=== PATIENT | female | born 1975 | race Hispanic/Latino ===

== ENCOUNTER 2018-07-27 17:45 | Emergency (ER) | payer OTHER ==
[2018-07-27 17:52] VITALS: O2SAT 100
[2018-07-27 18:29] LABS: BASO % 0.7 % (0.0-2.0); EOS # 0.1 K/uL (0.0-0.7); EOS % 1.2 % (0.0-4.0); HEMOGLOBIN 13.7 g/dL (12.0-16.0); LYMPH # 1.9 K/uL (1.0-4.3); LYMPH % 37.8 % (20.0-40.0); MEAN CELL VOLUME 92.9 fl (81.0-99.0); MEAN CORPUSCULAR HGB CONC 34.4 g/dL (33.0-37.0); MEAN PLATELET VOLUME 7.8 fl (7.2-11.7); MONO # 0.3 K/uL (0.0-0.8); MONO % 5.8 % (0.0-10.0); NEUT # 2.8 K/uL (1.8-7.0); NEUT % 54.5 % (50.0-75.0); NRBC % 0.3 % (0.0-0.0); RBC 4.28 Mil/uL (3.80-5.20); RED CELL DISTRIBUTION WIDTH 13.2 % (11.5-14.5); WHITE BLOOD COUNT 5.1 K/uL (4.8-10.8)
[2018-07-27 18:32] LABS: ALB/GLOB RATIO 1.4 (1.0-2.1); ALBUMIN 4.9 g/dL (3.5-5.0); ALT/SGPT 15 U/L (9-52); AST/SGOT 23 U/L (14-36); BLOOD UREA NITROGEN 11 mg/dl (7-17); CALCIUM 9.9 mg/dL (8.4-10.2); GFR NON-AFRICAN AMERICAN > 60
[2018-07-27 18:37] LABS: ACETAMINOPHEN < 10.0 ug/ml (10.0-30.0); SALICYLATE < 1.0 mg/dl
--- NOTE | 2018-07-27 18:57 | ED PDOC ---
HPI: Psych/Substance Abuse Time Seen by Provider: 07/27/18 17:51 Chief Complaint (Nursing): Alcohol Ingestion Chief Complaint (Provider): alcohol ingestion History/Exam Limitations: intoxication Additional Complaint(s): 42 y/o F with no significant PMH who was brought in by [place] [employer] and EMS for evaluation of alcohol intoxication. [place] police were stopped by bystanders reporting that patient was noted to be stumbling and falling against parked cars while pushing a stroller. As per [place] police officers who responded to call, pt was seen to have an unsteady gait and appeared visibly intoxicated with the smell of alcohol on her breath. EMS was called to evaluate patient and baby. Patient admits to having 2 drinks earlier today. Denies falling or any physical complaints. Denies drug use or chronic alcohol use. Of note: Child is being evaluated in ER currently with her mixing machine tender and [place] police lieutenant as guardian as per patient, there are no other family members to stay with child. Past Medical History Reviewed: Historical Data, Nursing Documentation, Vital Signs Vital Signs: Last Vital Signs Temp 98 F 07/27/18 17:48 Pulse 115 H 07/27/18 17:48 Resp 16 07/27/18 17:48 BP 134/67 07/27/18 17:48 Pulse Ox 100 07/27/18 17:48 - Medical History PMH: Asthma Denies: Chronic Kidney Disease - Family History Family History: States: Unknown Family Hx - Immunization History Hx Tetanus Toxoid Vaccination: No Hx Influenza Vaccination: No - Home Medications Home Medications: Ambulatory Orders Medication Instructions Recorded Albuterol 2 inh PO Q6 PRN 11/12/14 Prilosec 11/18/14 - Allergies Allergies/Adverse Reactions: Allergies Allergy/AdvReac Type Severity Reaction Status Date / Time No Known Allergies Allergy Verified 11/12/14 13:29 Review of Systems Neurological: Negative for: Weakness, Incoordination, Confusion, Headache Physical Exam - Reviewed Nursing Documentation Reviewed: Yes Vital Signs Reviewed: Yes - Physical Exam Appears: Positive for: No Acute Distress Head Exam: Positive for: ATRAUMATIC, NORMAL INSPECTION Skin: Positive for: Normal Color Eye Exam: Positive for: EOMI, PERRL, Conjunctival injection (mild B/L) ENT: Negative for: Pharyngeal Erythema Neck: Positive for: Supple Cardiovascular/Chest: Positive for: Regular Rate, Rhythm Respiratory: Positive for: Normal Breath Sounds Extremity: Positive for: Normal ROM (with flexion and extension of B/L shoulders, elbows, knees. No excoriations or ecchymosis. ) Neurological/Psych: Positive for: Awake, Alert, Symmetric/Intact Strength, Oriented, Gait (steady, able to walk heel to toe.), Cerebellar Tests (able to perform alternating finger to nose to finger test), livestock breeder II-XII (puff cheeks and smiles symmetrically, no tongue deviation. ). Negative for: Lethargic, Motor/Sensory Deficits, Facial Droop - Laboratory Results Result Diagrams: 07/27/18 18:17 07/27/18 18:17 Lab Results: Total Bilirubin 1.0 mg/dl (0.2-1.3) 07/27/18 18:17 AST 23 U/L (14-36) 07/27/18 18:17 ALT 15 U/L (9-52) 07/27/18 18:17 Alkaline Phosphatase 49 U/L (38-126) 07/27/18 18:17 Total Protein 8.2 G/DL (6.3-8.2) 07/27/18 18:17 Albumin 4.9 g/dL (3.5-5.0) 07/27/18 18:17 Globulin 3.4 gm/dL (2.2-3.9) 07/27/18 18:17 Albumin/Globulin Ratio 1.4 (1.0-2.1) 07/27/18 18:17 - ECG O2 Sat by Pulse Oximetry: 100 Medical Decision Making Medical Decision Making: CBC, CMP, serum ETOH Urine drug screen salicylate Acetaminophen level Serum ETOH 244 @ 18:17 Labs otherwise unremarkable 20:00: patient endorsed to SAAD Pleitez pending sobriety Disposition - Clinical Impression Clinical Impression: Alcohol intoxication - Patient ED Disposition Is Patient to be Admitted: Transfer of Care (SAAD Pleitez) - Disposition Disposition: Routine/Home Disposition Time: 20:00 Condition: FAIR Forms: [employer] (Cuban)
[2018-07-27 19:00] LABS: BARBITURATES, UR NEGATIVE (NEGATIVE); BENZODIAZEPINES, UR NEGATIVE (NEGATIVE); OPIATES, UR NEGATIVE (NEGATIVE)
[2018-07-27 19:09] LABS: PHENCYCLIDINE, UR NEGATIVE (NEGATIVE)
[2018-07-27 20:50] VITALS: BP 128/83; PULSE 92; RESP 18; TEMP 98.8
--- NOTE | 2018-07-27 22:01 | ED PDOC ---
- Laboratory Results Result Diagrams: 07/27/18 18:17 07/27/18 18:17 Lab Results: Total Bilirubin 1.0 mg/dl (0.2-1.3) 07/27/18 18:17 AST 23 U/L (14-36) 07/27/18 18:17 ALT 15 U/L (9-52) 07/27/18 18:17 Alkaline Phosphatase 49 U/L (38-126) 07/27/18 18:17 Total Protein 8.2 G/DL (6.3-8.2) 07/27/18 18:17 Albumin 4.9 g/dL (3.5-5.0) 07/27/18 18:17 Globulin 3.4 gm/dL (2.2-3.9) 07/27/18 18:17 Albumin/Globulin Ratio 1.4 (1.0-2.1) 07/27/18 18:17 - ECG O2 Sat by Pulse Oximetry: 100 - Progress ED Course And Treament: 1999 Signed out to me pending sobriety 2029 On my initial evaluation, pt. in no distress. Offers no complaints. Gait steady, unassisted. 2100 DYFS in pt's room. 2245 As per DYFS pt. will be going home with her child's product assembler (Samantha Callahan) who will serve as an observer and contact DYFS for any concerns regarding baby's safety. Pt. informed of all results and dangers of drinking alcohol. Pt. offers no complaints. Gait steady, unassisted. Disposition - Clinical Impression Clinical Impression: Alcohol intoxication - POA Present On Arrival: None - Disposition Disposition: Routine/Home Disposition Time: 22:50 Condition: IMPROVED Additional Instructions: ODALIS SMITH, thank you for letting us take care of you today. Your provider was Troy Jimenes MD and you were treated for ETOH. The emergency medical care you received today was directed at your acute symptoms. If you were prescribed any medication, please fill it and take as directed. It may take several days for your symptoms to resolve. Return to the Emergency Department if your symptoms worsen, do not improve, or if you have any other problems. Please contact your doctor or call one of the physicians/clinics you have been referred to that are listed on the Patient Visit Information form that is included in your discharge packet. Bring any paperwork you were given at discharge with you along with any medications you are taking to your follow up visit. Our treatment cannot replace ongoing medical care by a primary care pro vider outside of the emergency department. Thank you for allowing the [facility] team to be part of your care today. If you had an X-Ray or CT scan: A Radiologist will review the ED reading if any change in treatment is needed we will contact you. If you had a blood, urine, or wound culture: It will take several days for the results, if any change in treatment is needed we will contact you. If you had an STI test: It will take 48 hours for the results. Please call after 1 week if you have not heard back. Instructions: Alcohol Use - When Is Drinking a Problem? Forms: [employer] (Faroese)
== END 2018-07-27 22:48 | disposition home or self-care (01) ==
LOC: H.ER 17:45
DX: F10.129 Alcohol abuse with intoxication, unspecified (principal)